=== PATIENT | male | born 1985 | race Hispanic/Latino ===

== ENCOUNTER 2022-06-14 06:44 | Day surgery (SDC) | payer OTHER ==
[2022-06-12 09:50] VITALS: BP 124/66
[2022-06-12 09:56] LABS: BASOPHILS % (AUTO) 0.7 % (0.0-5.0); EOSINOPHILS % (AUTO) 1.9 % (0.0-8.0); HEMATOCRIT 41.9 % (42-54); LYMPHOCYTES % (AUTO) 21.2 % (21.0-51.0); MEAN CORPUSCULAR HEMOGLOBIN 30.4 pg (27.0-33.0); MEAN CORPUSCULAR HGB CONC 34.1 g/dL (32.0-36.0); MONOCYTES % (AUTO) 6.4 % (3.0-13.0); NEUTROPHILS % (AUTO) 69.3 % (40.0-77.0); PLATELET COUNT (AUTO) 302 K/uL (130-400); RED BLOOD CELL COUNT(AUTO) 4.71 MIL/uL (4.50-6.20); RED CELL DISTRIBUTION WIDTH 13.4 % (11.0-15.5); WHITE BLOOD COUNT (AUTO) 10.3 K/uL (4.8-10.8)
[2022-06-12 10:05] LABS: ALBUMIN 3.7 g/dL (3.5-5.0); CARBON DIOXIDE 27 mmol/L (21-32); CHLORIDE 104 mmol/L (101-111); GLOMERULAR FILTR. RATE CALC 90 mL/min (>60); GLUCOSE,RANDOM 101 mg/dL (70-105); POTASSIUM 4.2 mmol/L (3.5-5.1); SODIUM SERUM 138 mmol/L (136-145); UREA NITROGEN, BLOOD 13 mg/dL (7-18)
[2022-06-12 10:07] LABS: CRP QUANTITATIVE < 2.00 mg/L (0.00-9.0)
[2022-06-14] VITALS (16 sets, daily range): BP systolic 98–120; BP diastolic 53–73
[~2022-06-14] VITALS: Ht 167.6 cm; Wt 99.3 kg
[~2022-06-14 06:44] MED LIST: AMIT10TA6 PO; BUPR-317 PO; CEFAZOLIN SODIUM 1 GM VIAL IVPB SCH; EPINEPHRINE PF 1MG (1:1,000) 1 MG/ML AMP ONE; HYDR-3422 PO; IBUP-2077 PO; ROPIVACAINE 0.5% 5MG/ML 30ML IJ ONE; ROSU20TA31 PO
[2022-06-14] MEDS ORDERED: LACTATED RINGERS 1000ML 1,000 ML IV ONE ×2 (07:58→08:15)
[2022-06-14] MEDS ORDERED: LIDOCAINE PF 100MG/5ML (2%) SYRINGE 5ML ONE (08:24)
[2022-06-14] MEDS ORDERED: PROPOFOL 10 MG/ML 20ML VIAL IV ONE (08:25)
[2022-06-14] MEDS ORDERED: FENTANYL CITRATE PF 50 MCG/1 ML 5ML AMP IV ONE (08:25)
[2022-06-14] MEDS ORDERED: MIDAZOLAM HCL 1 MG/ML 2ML VIAL ONE (08:26)
[2022-06-14] MEDS ORDERED: ROCURONIUM 10MG/1ML SYR 10 MG/ML ML ONE ×2 (08:40→09:30)
[2022-06-14] MEDS ORDERED: ONDANSETRON 4MG INJ ONE (08:41)
[2022-06-14] MEDS ORDERED: DEXAMETHASONE SOD PHOSPHATE 10MG/ML 1ML VIAL ONE (08:44)
[2022-06-14] MEDS ORDERED: CEFAZOLIN SODIUM 2 GM VIAL IVPB ONE (09:06)
[2022-06-14] MEDS ORDERED: PHENYLEPHRINE HCL 10 MG/ML 1ML VIAL IV ONE (09:42)
[2022-06-14] MEDS ORDERED: KETOROLAC 30MG VIAL (30MG/ML) ONE (11:36)
[2022-06-14] MEDS ORDERED: NEOSTIGMINE 5MG/5ML SYR IV ONE (11:37)
[2022-06-14] MEDS ORDERED: GLYCOPYRROLATE 1 MG/5 ML SYRINGE ONE (11:37)
[2022-06-14] MEDS ORDERED: FENTANYL CITRATE PF 50 MCG/1 ML 2ML VIAL ONE (11:41)
[2022-06-14] MEDS ORDERED: HYDR-4060 PO (11:52)
== END 2022-06-14 13:30 | disposition home or self-care (01) ==
LOC: DAH 06:44
PROVIDERS: ATTEND Student in an Organized Health Care Education/Training Program
DX: S43.432A Superior glenoid labrum lesion of left shoulder, initial encounter (principal); Z20.822 Contact with and (suspected) exposure to COVID-19; M75.42 Impingement syndrome of left shoulder; M94.212 Chondromalacia, left shoulder; M25.712 Osteophyte, left shoulder; F32.A Depression, unspecified; E78.5 Hyperlipidemia, unspecified; F41.9 Anxiety disorder, unspecified; Z87.891 Personal history of nicotine dependence; X58.XXXA Exposure to other specified factors, initial encounter; Y93.89 Activity, other specified; Y92.89 Other specified places as the place of occurrence of the external cause
CPT/HCPCS: 82040; 80048; 85025; 84134; 86140; 87426; 36415; 29822; 29826; 64415; A4663; J7030; J7120 ×2; J3010 ×2; J0690 ×2; J3490; J1100; J2710; J2001; J0171; J2250; J2704; J2405; J1885; J2795; J2370; A6223; C1769; A5120; A4215; A4223; A4222; A4221